=== PATIENT | female | born 1985 | race American Indian/Alaskan Native ===

== ENCOUNTER 2017-06-04 07:35 | Emergency (ER) | payer MEDICAID ==
[2017-06-04 07:40] VITALS: BMI 22.3
[2017-06-04 07:56] VITALS: O2SAT 100
[2017-06-04] MEDS ORDERED: Sodium Chloride 0.9% 1,000 ML IV STA (08:15)
--- NOTE | 2017-06-04 08:17 | ED PDOC ---
Arrival/HPI - General Chief Complaint: Flu-like Symptoms Time Seen by Provider: 06/04/17 07:40 Historian: Patient - History of Present Illness Narrative History of Present Illness (Text): 06/04/17 08:14 31 year old female, whose past medical history includes asthma, presents to the emergency department by Kevin complaining of chest pain that began yesterday. Patient describes the chest pain as sharp and constant, but non radiating and in a small focal area under right breast. Patient noted similar symptoms multiple times before. Patient states she was taking control depo shot and her last menstrual period was 5 months ago. Patient reports brown vaginal discharge 3 days ago. She also reports sore throat, body aches, and right arm numbness, but denies any fever, chills, shortness of breath, abdominal pain, nausea, vomiting, diarrhea, urinary symptoms, back pain, neck pain, headache, dizziness, or any other complaints. Past Medical History - Provider Review Nursing Documentation Reviewed: Yes - Cardiac Hx Cardiac Disorders: No - Pulmonary Hx Respiratory Disorders: No - Neurological Hx Neurological Disorder: No - HEENT Hx HEENT Disorder: No - Renal Hx Renal Disorder: No - Endocrine/Metabolic Hx Endocrine Disorders: No - Hematological/Oncological Hx Blood Disorders: No - Integumentary Hx Dermatological Disorder: No - Musculoskeletal/Rheumatological Hx Musculoskeletal Disorders: No - Gastrointestinal Hx Gastrointestinal Disorders: No - Genitourinary/Gynecological Hx Genitourinary Disorders: No - Psychiatric Hx Psychophysiologic Disorder: No Hx Substance Use: No - Surgical History Other/Comment: - Anesthesia Hx Anesthesia: Yes Family/Social History - Physician Review Nursing Documentation Reviewed: Yes Family/Social History: No Known Family HX Smoking Status: Never Smoked Hx Alcohol Use: No Hx Substance Use: No Allergies/Home Meds Allergies/Adverse Reactions: Allergies No Known Allergies Allergy (Verified 06/04/17 07:39) Review of Systems - Physician Review All systems were reviewed & negative as marked: Yes - Review of Systems Constitutional: absent: Fevers Respiratory: absent: SOB Genitourinary Female: absent: Frequency Musculoskeletal: absent: Back Pain, Neck Pain Neurological: absent: Headache, Dizziness Physical Exam - Physical Exam Narrative Physical Exam (Text): Constitutional: No acute distress. Head: Normocephalic. Atraumatic. Eyes: PERRL. ENT: Moist mucous membranes. Neck: Supple. Cardiovascular: Regular rate. Chest: Reproducible chest tenderness. Reproducible pain with pectoral muscle use. Respiratory: Clear to auscultation bilaterally. GI: Soft. Nontender. Nondistended. Back: No CVA tenderness. Musculoskeletal: No tenderness or swelling of extremities. Skin: No rash. Neurologic: Alert, no focal deficit. Sensation to light touch intact bilateral arms. Vital Signs Temp Pulse Resp BP Pulse Ox 06/04/17 07:49 99.9 F H 97 H 19 109/67 100 Medical Decision Making ED Course and Treatment: Plan: -- Labs -- Chest X-ray Two Views -- IV Fluids -- Toradol -- Influenza A B -- HCG, Qualit -- Urinalysis -- Reassess and disposition Progress Notes: 06/04/17 09:40 CXR no acute disease. No PTX, no pleural effusion. Overlying nipple piercings. Patient in no distress during ED stay. Likely viral illness in this young patient with body aches, low grade fever, sore throat, reproducible chest pain. Will discharge, informed of importance of primary care follow up. - Lab Interpretations Lab Results: 06/04/17 08:45 06/04/17 08:45 Lab Results 06/04/17 08:45: Sodium 141, Potassium 4.1, Chloride 105, Carbon Dioxide 25, Anion Gap 15, BUN 11, Creatinine 0.8, Est GFR ( Amer) > 60, Est GFR (Non- Af Amer) > 60, Random Glucose 92, Calcium 9.9, Total Bilirubin 1.2, AST 27, ALT 31, Alkaline Phosphatase 48, Total Creatine Kinase 109, Troponin I < 0.01, Total Protein 8.8 H, Albumin 4.6, Globulin Pending, Albumin/Globulin Ratio Pending 06/04/17 08:45: Urine Color Yellow, Urine Appearance Sl cloudy, Urine pH 6.0, Ur Specific Bol[place] >= 1.030, Urine Protein Trace H, Urine Glucose (UA) Negative , Urine Ketones Trace H, Urine Blood Small H, Urine Nitrate Negative, Urine Bilirubin Negative, Urine Urobilinogen 0.2, Ur Leukocyte Esterase Negative, Urine RBC 0 - 2, Urine WBC 0 - 2, Ur Epithelial Cells 6 - 8, Urine Bacteria Few , Urine HCG, Qual Negative 06/04/17 08:45: Influenza Typ A,B (EIA) Negative for flu a/b 06/04/17 08:45: WBC 9.7, RBC 4.75, Hgb 12.5, Hct 39.0, MCV 82.1, MCH 26.3, MCHC 32.1, RDW 13.4, Plt Count 314, MPV 9.7, Gran % 72.8 H, Lymph % (Auto) 18.2 L, Anderson % (Auto) 8.3 H, Eos % (Auto) 0.4 L, Baso % (Auto) 0.3, Gran # 7.02 H, Lymph # 1.8, Anderson # 0.8 H, Eos # 0.0, Baso # 0.03 I have reviewed the lab results: Yes - RAD Interpretation Radiology Orders: 06/04/17 08:14 CHEST TWO VIEWS (PA/LAT) [RAD] Stat - Medication Orders Current Medication Orders: Discontinued Medications Sodium Chloride (Sodium Chloride 0.9%) 1,000 mls @ 999 mls/hr IV .Q1H1M STA Stop: 06/04/17 09:15 Last Admin: 06/04/17 08:30 Dose: 999 mls/hr eMAR Start Stop Document 06/04/17 08:30 LA (Rec: 06/04/17 08:53 [id number] Intravenous Solution Start Date 06/04/17 Start Time 08:53 Ketorolac Tromethamine (Toradol) 30 mg IVP STAT STA Stop: 06/04/17 08:16 Last Admin: 06/04/17 08:35 Dose: 30 mg MAR Pain Assessment Document 06/04/17 08:35 LA (Rec: 06/04/17 08:54 [id number] Pain Reassessment Is this a pain reassessment? Yes Sleep Is patient sleeping during reassessment? No Presence of Pain Presence of Pain Yes Pain Scale Used Pain Scale Used Numeric Location Pain Location Body Site Generalized Description Intensity of Pain at present 8 IVP Administration Document 06/04/17 08:35 LA (Rec: 06/04/17 08:54 [id number]) Charges for Administration # of IVP Administrations 1 - Scribe Statement The provider has reviewed the documentation as recorded by the Alva Maldonado Provider Scribe Attestation: All medical record entries made by the Scribkyrie were at my direction and personally dictated by me. I have reviewed the chart and agree that the record accurately reflects my personal performance of the history, physical exam, medical decision making, and the department course for this patient. I have also personally directed, reviewed, and agree with the discharge instructions and disposition. Disposition/Present on Arrival - Present on Arrival Any Indicators Present on Arrival: No History of DVT/PE: No History of Uncontrolled Diabetes: No Urinary Catheter: No History of Decub. Ulcer: No History Surgical Site Infection Following: None - Disposition Have Diagnosis and Disposition been Completed?: Yes Diagnosis: Body aches, Chest wall pain Disposition: HOME/ ROUTINE Disposition Time: 09:43 Patient Plan: Discharge Condition: STABLE Discharge Instructions (ExitCare): Viral Syndrome (ED), Chest Wall Pain (ED) Prescriptions: Ibuprofen [Motrin] 1 tab PO Q6 #30 tab Referrals: PCP,NO [Primary Care Provider] - Follow up with primary [facility] [place] [Outside] - Follow up with primary Forms: [employer] ([place])
[2017-06-04 09:11] LABS: URINE APPEARANCE SL CLOUDY (CLEAR); URINE BILIRUBIN NEGATIVE (NEGATIVE); URINE BLOOD SMALL (NEGATIVE); URINE COLOR YELLOW (YELLOW); URINE GLUCOSE (UA) NEGATIVE (NEGATIVE); URINE LEUKOCYTE ESTERASE NEGATIVE Leu/uL (NEGATIVE); URINE NITRATE NEGATIVE (NEGATIVE); URINE PROTEIN TRACE mg/dL (<30 mg/dL); URINE UROBILINOGEN 0.2 E.U./dL (<1 E.U./dL)
[2017-06-04 09:12] LABS: BASO # 0.03 K/mm3 (0.0-2.0); BASO % 0.3 % (0.0-3.0); EOS % 0.4 % (1.5-5.0); GRAN # 7.02 (1.4-6.5); GRAN % 72.8 % (50.0-68.0); HEMOGLOBIN 12.5 g/dL (12.0-16.0); LYMPH # 1.8 (1.2-3.4); LYMPH % 18.2 % (22.0-35.0); MEAN CELL VOLUME 82.1 fl (80.0-105.0); MEAN CORPUSCULAR HEMOGLOBIN 26.3 pg (25.0-35.0); MEAN CORPUSCULAR HGB CONC 32.1 g/dl (31.0-37.0); MEAN PLATELET VOLUME 9.7 fl (7.0-11.0); MONO # 0.8 (0.1-0.6); MONO % 8.3 % (1.0-6.0); RBC 4.75 10^6/uL (3.5-6.1); RED CELL DISTRIBUTION WIDTH 13.4 % (11.5-14.5); WHITE BLOOD COUNT 9.7 10^3/ul (4.5-11.0)
[2017-06-04 09:19] LABS: HCG,QUALITATIVE URINE NEGATIVE (NEGATIVE); URINE BACTERIA FEW (NEG); URINE RBC 0 - 2 /hpf (0-2); URINE WBC 0 - 2 /hpf (0-6)
[2017-06-04 09:20] LABS: ALT/SGPT 31 U/L (7-56); AST/SGOT 27 U/L (14-36); BLOOD UREA NITROGEN 11 mg/dL (7-21); CALCIUM 9.9 mg/dL (8.4-10.5); GFR AFRICAN-AMERICAN > 60; GFR NON-AFRICAN AMERICAN > 60
[2017-06-04 09:30] LABS: TROPONIN I < 0.01 ng/mL
--- NOTE | 2017-06-04 09:50 | RAD ---
HISTORY: cp COMPARISON: No prior. TECHNIQUE: Chest PA and lateral FINDINGS: LUNGS: No active pulmonary disease. PLEURA: No significant pleural effusion identified. No pneumothorax apparent. CARDIOVASCULAR: Normal. OSSEOUS STRUCTURES: No significant abnormalities. VISUALIZED UPPER ABDOMEN: Normal. OTHER FINDINGS: None. IMPRESSION: No active disease.
[2017-06-04 09:55] VITALS: BP 114/67; PULSE 88; RESP 18; TEMP 98.2
[2017-06-04 10:58] LABS: ALBUMIN 4.5 g/dL (3.0-4.8)
== END 2017-06-04 10:08 | disposition home or self-care (01) ==
LOC: MERGE 07:35 → ED 07:35
DX: R07.89 Other chest pain (principal); M79.1 Myalgia
CPT/HCPCS: 71046; 80053; 81001; 82550; 84484; 84703; 85025; 87804; 96374; 99284; J1885; J7040